=== PATIENT | male | born 1965 | race Caucasian/White ===

== ENCOUNTER 2019-12-25 13:37 | Emergency (ER) | payer BC, OTHER ==
[~2019-12-25] VITALS: Ht 185.4 cm; Wt 104.3 kg
[~2019-12-25 13:37] MED LIST: ASPI-807 PO
[2019-12-25 14:41] VITALS: BP 156/89
== END 2019-12-25 16:23 | disposition home or self-care (01) ==
LOC: ER 13:45
DX: M25.511 Pain in right shoulder (principal); I25.2 Old myocardial infarction; Z95.818 Presence of other cardiac implants and grafts; Z79.82 Long term (current) use of aspirin; W11.XXXA Fall on and from ladder, initial encounter; Y93.89 Activity, other specified; Y92.89 Other specified places as the place of occurrence of the external cause; Y99.0 Civilian activity done for income or pay
CPT/HCPCS: 73030-TC; 73060-TC